=== PATIENT | female | born 1970 | race Caucasian/White ===

== ENCOUNTER 2017-08-31 15:26 | Emergency (ER) | payer OTHER ==
[~2017-08-31] VITALS: Ht 162.6 cm; Wt 76.7 kg
[~2017-08-31 15:26] MED LIST: ACETAMINOPHEN-1 EAC1 PO; ALBUTEROL INH; ALBUTEROL2.5 MG/0.5 INH; ALBUTEROL2.5 MG/3 M INH; ANTACID650 MG PO; ASMANEX0.135 G1; ASMANEX0.135 G1 IH; ASMANEX0.135 G1 INH; ASMANEX0.135 GM IH; AZITHROMYCIN 2250 MG PO; CEFUROXIME500 MG PO; DUONEB 2.5-0.5 M3 ML INH; EFFEXOR 5050 MG/1 T1; EFFEXOR 5050 MG/1 T1 PO; EFFEXOR XR150 MG PO; EFFEXOR XR75 MG PO; EFFEXOR100 MG PO; FLEXERIL PO; FLONASE 0.05%50 MCG NASAL; LEVAQUIN 500 M500 M2 PO; LIPITOR 20 MG T20 M1 PO; MEDROL DOSPAK21 TAB PO; MEDROLDOSEPACK PO; MIRALAX17 GM PO; MUCINEX DM TABL1 TA1 PO; NORCO 5-325 TA1 EAC1 PO; NORCO 5-325 TA1 EACH PO; OSELB75 PO; PERCOCET 7.5-31 EACH PO; PHENERGAN-CODE120 ML PO; PREDNISONE 10 M10 M1 PO; PREDNISONE 10 M10 MG PO; PREDNISONE 20 M20 M1 PO; PREDNISONE 20 M20 MG PO; PREDNISONE50 MG PO; PROAIR HFA8.5 GM INH; PROPRANOLOL 1010 MG PO; REQUIP1 MG PO; ROBAXIN500 MG PO; SINGULAIR 10 MG10 M1 PO; TESSALON PERLE100 MG PO; VENTOLIN HFA 1818 GM INH; ZOFRAN ODT4 MG SUBLING; ZYRTEC 10 MG TA10 MG PO; ZYRTEC10 M2; ZYRTEC10 M4 PO
[2017-08-31] MEDS ORDERED: LAMICTAL100 MG PO (15:35)
[2017-08-31 16:35] LABS: ABSOLUTE BASOPHILS 0.1 thou/uL (0.0-0.2); ABSOLUTE EOSINOPHILS 0.6 thou/uL (0.0-0.7); ABSOLUTE LYMPHOCYTES 1.4 thou/uL (0.8-5.3); ABSOLUTE MONOCYTES 0.5 thou/uL (0.0-1.2); ABSOLUTE NEUTROPHILS 6.9 thou/uL (1.6-8.1); EOSINOPHILS 6.8 %; HEMATOCRIT 46.4 % (37.0-47.0); LYMPHOCYTES 14.9 %; MCH 33.6 pg (26.0-34.0); MCHC 34.5 g/dL (28.0-37.0); MCV 97.5 fL (80.0-100.0); MONOCYTES 5.3 %; MPV 7.1 fl. (7.2-11.1); NUCLEATED RBCS 0 /100WBC; PLATELET COUNT* 270 thou/uL (150-400); RBC 4.76 mil/uL (4.20-5.00); RDW-CV 13.3 % (10.5-14.5); WBC 9.5 thou/uL (4.0-11.0)
[2017-08-31 16:42] LABS: CALCIUM 8.4 mg/dL (8.5-10.1); CREATININE 0.8 mg/dL (0.6-1.3); POTASSIUM 4.2 mmol/L (3.5-5.1)
[2017-08-31 16:44] LABS: APTT 28.3 Seconds (25.0-31.3); PROTIME 9.8 Seconds (9.20-11.50)
[2017-08-31 16:46] LABS: ALBUMIN 3.7 g/dL (3.4-5.0); TOTAL BILIRUBIN 0.4 mg/dL (<0.1-1.0); TOTAL PROTEIN 7.4 g/dL (6.4-8.2)
[2017-08-31 16:55] LABS: URINE BILIRUBIN NEGATIVE (Negative); URINE BLOOD 1+ (Negative); URINE CLARITY CLEAR; URINE COLOR YELLOW; URINE GLUCOSE-RANDOM NEGATIVE (Negative); URINE KETONES NEGATIVE (Negative); URINE LEUKOCYTES-REFLEX NEGATIVE (Negative); URINE NITRITE-REFLEX NEGATIVE (Negative); URINE PROTEIN NEGATIVE (Negative); URINE SPECIFIC GRAVITY >= 1.030 (1.005-1.030); URINE UROBILINOGEN 0.2 E.U./dl (0.2-1.0)
[2017-08-31 17:13] LABS: BACTERIA-REFLEX 1-9 Few /HPF (None Seen); CASTS None Seen /LPF (None Seen); CRYSTALS None Seen /LPF (None Seen); MUCUS None Seen strn/LPF (None Seen); SQUAMOUS >10 Many /LPF (0-3); URINE RBC 0-2 Rare /HPF (0-2)
[2017-08-31 17:14] LABS: URINE WBC-REFLEX 0-5 Rare /HPF (0-5)
[2017-08-31] MEDS ORDERED: MEDROLDOSEPACK PO (17:28)
[2017-08-31] MEDS ORDERED: TRIAMCINOLONE A80 G2 TOP (17:28)
[2017-08-31] MEDS ORDERED: [UNRECOGNIZED DRUG - OTHER] TOP ×2 (17:31→17:36)
[2017-08-31] MEDS ORDERED: LORATIDINE 10 M10 M1 PO (17:34)
[2017-08-31 17:39] VITALS: BP 162/90
== END 2017-08-31 17:40 | disposition home or self-care (01) ==
LOC: M.ERS 15:26
PROVIDERS: Physician Assistant
DX: R21 Rash and other nonspecific skin eruption (principal); J45.909 Unspecified asthma, uncomplicated; F17.210 Nicotine dependence, cigarettes, uncomplicated; F10.99 Alcohol use, unspecified with unspecified alcohol-induced disorder; Z98.890 Other specified postprocedural states; Z88.6 Allergy status to analgesic agent

== ENCOUNTER 2021-05-03 03:31 | Emergency (ER) | payer OTHER ==
[~2021-05-03] VITALS: Ht 162.6 cm; Wt 70.3 kg
[~2021-05-03 03:31] MED LIST changes: +LAMICTAL100 MG PO; +LORATIDINE 10 M10 M1 PO; +TRIAMCINOLONE A80 G2 TOP; +[UNRECOGNIZED DRUG - OTHER] TOP
[2021-05-03 04:57] VITALS: BP 108/57
== END 2021-05-03 04:57 | disposition home or self-care (01) ==
LOC: M.ERS 03:31
DX: M79.671 Pain in right foot (principal); J45.909 Unspecified asthma, uncomplicated; F17.210 Nicotine dependence, cigarettes, uncomplicated; Z79.899 Other long term (current) drug therapy; Z88.6 Allergy status to analgesic agent